=== PATIENT | female | born 1995 | race Hispanic/Latino ===

== ENCOUNTER 2018-12-17 19:41 | Emergency (ER) | payer OTHER, MEDICAID ==
[2018-12-17 19:57] VITALS: BP 112/49
[2018-12-17] MEDS ORDERED: ZOFRAN ODT PO ONE (20:17)
[2018-12-17] MEDS ORDERED: NORCO 5/325 PO ONE (20:17)
--- NOTE | 2018-12-17 20:22 | Emergency Department Report ---
HPI - General Chief Complaint: Headache Time Seen by Provider: 12/17/18 20:11 - HPI HPI: Room 19 The patient is a 23-year-old female presenting with a chief complaint of headache. The patient says yesterday she was struck in the back of the head by a thrown football. Patient denies loss of consciousness. Patient states she was okay until this morning when she awakened she develop a diffuse headache. Patient states she's had blurred vision nausea without vomiting and dizziness. Patient states she has had trouble with her memory as well. Patient's currently at [facility] was being treated for anxiety. Patient currently gets her headache and score of 8/10 Location: Head Duration: [See above] Quality: Headache Severity:8/10 Modifying factors: [see above] Context: [see above] Mode of transportation: [not driving] ED Past Medical Hx - Past Medical History Previous Medical History?: Yes Additional medical history: Anxiety - Surgical History Past Surgical History?: No Additional Surgical History: Oophorectomy of duplicate ovary, with some tooth extraction, T&A - Family History Family history: no significant - Social History Smoking Status: Current Every Day Smoker (1/2 pack per day) Substance Use Type: None (denies illicit drug use), Alcohol (occasional) - Medications Home Medications: Home Medications Medication Instructions Recorded Confirmed Last Taken Type Butalb/Acetamin/Caff 50-325-40 2 tab PO Q8HR PRN #14 tablet 12/17/18 Unknown Rx [Fioricet] Ondansetron [Zofran ODT TAB] 8 mg PO Q8HR #20 tab.rapdis 12/17/18 Unknown Rx ED Review of Systems ROS: Stated complaint: HEAD INJURY RE:FOOTBALL Other details as noted in HPI Constitutional: no symptoms reported Eyes: vision change ENT: denies: throat pain Respiratory: no symptoms reported Cardiovascular: denies: chest pain Endocrine: no symptoms reported Gastrointestinal: nausea. denies: vomiting Genitourinary: denies: dysuria Musculoskeletal: denies: back pain Neurological: headache Physical Exam - Physical Exam Vital Signs: Vital Signs 12/17/18 12/17/18 19:52 19:58 Temperature 98.3 F Pulse Rate 65 Respiratory 16 16 Rate Blood Pressure 112/49 [Left] O2 Sat by Pulse 99 99 Oximetry Physical Exam: GENERAL: The patient is well-developed well-nourished female lying on stretcher not appearing to be in acute distress. [] HEENT: Normocephalic. Atraumatic. Extraocular motions are intact. Patient has moist mucous membranes. No scalp bruising or laceration seen NECK: Supple. No axial tenderness to palpation CHEST/LUNGS: Clear to auscultation. There is no respiratory distress noted. HEART/CARDIOVASCULAR: Regular. There is no tachycardia. There is no gallop rub or murmur. ABDOMEN: Abdomen is soft, nontender. Patient has normal bowel sounds. There is no abdominal distention. SKIN: There is no rash. There is no edema. There is no diaphoresis. NEURO: The patient is awake, alert, and oriented. The patient is cooperative. The patient has no focal neurologic deficits. The patient has normal speech. Cranial nerves II through XII grossly intact, no drift MUSCULOSKELETAL: There is no evidence of acute injury. ED Course Vital Signs 12/17/18 12/17/18 19:52 19:58 Temperature 98.3 F Pulse Rate 65 Respiratory 16 16 Rate Blood Pressure 112/49 [Left] O2 Sat by Pulse 99 99 Oximetry ED Medical Decision Making - Radiology Data Radiology results: report reviewed (CT head), image reviewed (CT head) [facility] [address] [place] [address] Cat Scan Report Signed Patient: KARINA YOUNGER MR#: [id number] : 1995 Acct:[id number] Age/Sex: 23 / F ADM Date: 12/17/18 Loc: ED Attending Dr: Ordering Physician: SACHIN ABREU MD Date of Service: 12/17/18 Procedure(s): CT head/brain wo con Accession Number(s): [id number] cc: SAHCIN ABREU MD FINAL REPORT EXAM: CT HEAD/BRAIN WO CON HISTORY: [place] after being struck on occiput by football TECHNIQUE: Axial noncontrast CT images of the brain were performed. Total exam DLP 805.42 mGy-cm Comparison: None FINDINGS: Normal harley- white differentiation. No midline shift or mass effect. No acute extra-axial fluid collection or intraparenchymal blood products. Ventricles and cisterns have normal size and configuration. Conjugate gaze. Clear imaged paranasal sinuses. No displaced calvarial fracture. IMPRESSION: No acute intracranial abnormality. Specifically, no posttraumatic blood products. Transcribed By: MP Dictated By: BILL CORNEJO Electronically Authenticated By: BILL CORNEJO Signed Date/Time: 12/17/182146 DD/ 48 TD/TT: 12/17/182148 - Differential Diagnosis closed head injury, cerebral contusion, postconcussive syndrome Critical care attestation.: If time is entered above; I have spent that time in minutes in the direct care of this critically ill patient, excluding procedure time. ED Disposition Clinical Impression: Closed head injury, Postconcussive syndrome Disposition: TO HOME OR SELFCARE Is pt being admited?: No Does the pt Need Aspirin: No Condition: Stable Instructions: Minor Head Injury (ED), Concussion (ED) Additional Instructions: Return to the emergency department immediately should you develop worsening symptoms, fever, inability to tolerate food or liquid or any other concerns. Prescriptions: Butalb/Acetamin/Caff 50-325-40 [Fioricet] 2 tab PO Q8HR PRN #14 tablet PRN Reason: Headache Ondansetron [Zofran ODT TAB] 8 mg PO Q8HR #20 tab.rapdis Referrals: NICOLE CALDERÓN MD [Staff Physician] - 3-5 Days (Dr Calderón is a neurologist. Please follow up with him for further evaluation if your symptoms persist) Time of Disposition: 21:51
[2018-12-17 20:26] LABS: HCG Qualitative,Urine Negative (Negative)
--- NOTE | 2018-12-17 21:47 | Cat Scan Report ---
FINAL REPORT EXAM: CT HEAD/BRAIN WO CON HISTORY: TORO after being struck on occiput by football TECHNIQUE: Axial noncontrast CT images of the brain were performed. Total exam DLP 805.42 mGy-cm Comparison: None FINDINGS: Normal harley-white differentiation. No midline shift or mass effect. No acute extra-axial fluid collection or intraparenchymal blood products. Ventricles and cisterns have normal size and configuration. Conjugate gaze. Clear imaged paranasal sinuses. No displaced calvarial fracture. IMPRESSION: No acute intracranial abnormality. Specifically, no posttraumatic blood products.
[2018-12-17] MEDS ORDERED: BENADRYL IM ONE (22:11)
[2018-12-17] MEDS ORDERED: MORPHINE IM ONE (22:11)
== END 2018-12-17 23:53 | disposition home or self-care (01) ==
LOC: ED 19:41
DX: F07.81 Postconcussional syndrome (principal); F41.9 Anxiety disorder, unspecified; R42 Dizziness and giddiness; F17.200 Nicotine dependence, unspecified, uncomplicated
CPT/HCPCS: 70450; 81025; 96372; 99284; J1200; J2270; Q0162